=== PATIENT | female | born 1955 | race Caucasian/White ===

== ENCOUNTER → 2020-04-15 09:00 | Outpatient (CLI) | payer MEDICARE, OTHER, SELFPAY ==
[2020-04-15 10:15] LABS: Anion Gap 8 (5-15); BUN 19 mg/dL (7-18); Calcium,Total 8.3 mg/dL (8.5-10.1); Chloride 107 mmol/L (98-107); EST Glomerular Filtration Rate 66 mL/min (>60); Est Glom Filt Rate - Afr Amer 80 mL/min (>60); Glucose 93 mg/dL (74-106); Potassium 3.6 mmol/L (3.5-5.1); Sodium Level 141 mmol/L (136-145)
== END ==
PROVIDERS: PCP Internal Medicine; Referring Provider Nurse Practitioner Family; Visit Provider Nurse Practitioner Family
DX: Z79.891 Long term (current) use of opiate analgesic (principal); Z79.1 Long term (current) use of non-steroidal anti-inflammatories (NSAID)
CPT/HCPCS: 36415; 80048

== ENCOUNTER 2020-11-30 15:23 | Emergency (ER) | payer MEDICARE, SELFPAY ==
[2020-11-30 15:25] VITALS: BP 125/53; PULSE 78; RESP 18; TEMP 37.7; O2SAT 97; BMI 25.8
--- NOTE | 2020-11-30 15:50 | EX.ED.VIS.UR ---
HPI HPI - URI History of Present Illness Chief Complaint: Cough Informant: patient Onset/Context/Timing Onset: Days (3) Context: Gradual Onset Quality: Occasionally productive cough Location: Chest Current Severity: Moderate Maximum Severity: Moderate Worsened by: - (Coughing) Relieved by: - ( nothing) Narrative Narrative: 3 days of cough, congestion, sore throat at the beginning which is better now, and some shortness of breath. No symptoms of angina. No swelling in her legs. No fevers, chills, loss of taste or smell, or myalgias; although she comes into the ER with a temperature of 100. She denies any contact with anyone with Covid that she knows of. She has not been vaccinated. ROS ROS ED Constitutional Constitutional ED: Reports headache(s) and malaise; Denies body ache(s), chills or fever(s) Eyes Eyes: Denies change in vision or diplopia ENT ENT ED: Reports rhinorrhea and sore throat; Denies sinus pain Cardiovascular Cardiovascular: Denies chest pain or palpitations Respiratory/Chest Respiratory/Chest: Reports cough and dyspnea; Denies dyspnea on exertion Gastrointestinal Gastrointestinal: Reports diarrhea; Denies abdominal pain, nausea or vomiting Genitourinary Genitourinary ED: Denies dysuria or hematuria Musculoskeletal Musculoskeletal: Reports neck pain; Denies back pain Integumentary Denies abscess or rash Neurologic Neurologic: Reports headache(s); Denies paresthesias or weakness Psychiatric Psychiatric: Denies anxiety or suicidal thoughts [facility] Medical History (Updated 11/30/20 @ 17:[address] Musa Marsh MD) Chronic neck pain Home Medications albuterol sulfate [Ventolin HFA] 1 - 2 puff INHALATION Q4H PRN PRN #1 inhaler 11/30/20 [Rx Last Taken Unknown] Allergy/AdvReac Type Severity Reaction Status Date / Time diphenhydramine AdvReac Other Verified 11/30/20 15:25 [From Benadryl] prednisone AdvReac Other Verified 11/30/20 15:25 Social History Smoking Status: Former smoker EXAM Physical Exam Const Vital Signs: 11/30/20 15:25 11/30/20 15:51 Temperature 100 F H 100 F H Temperature Source Temporal Temporal Pulse Rate 78 78 Respiratory Rate 18 18 Blood Pressure 125/53 H 125/53 H Blood Pressure Mean 77 77 Pulse Ox 97 97 Oxygen Delivery Method Room Air Room Air Positive well nourished and well developed Constitutional Narrative: Well-appearing, no distress General Appearance ED: well developed and NAD HEENT Reports moist mucous membranes normocephalic and atraumatic Eyes PERRL and EOMs intact bilaterally Neck full ROM, no lymphadenopathy and supple Resp normal respiratory effort Resp Narrative: Few rhonchi left medial base otherwise clear throughout no wheezes no distress speaking in full sentences Cardio regular rate, regular rhythm and no murmurs Rate: Negative for tachycardic GI non-tender and non-distended Auscultation: normoactive bowel sounds Palpation: soft Back/Spine no CVA tenderness General Back: other FROM Extremity normal to inspection and no calf tenderness General Extremety ED: Negative for edema, pulses abnormal or tenderness General Extremity: Negative for edema or pulses abnormal Neuro oriented x3, CN's II-XII intact bilaterally and no sensory deficits noted Sensorium / Orientation: awake and alert Motor Exam: strength 5/5 throughout Skin no rashes or lesions noted and no wounds MDM MDM MDM Narrative Medical decision making narrative: Chest x-ray normal and Covid is positive. Patient reassured that her pulse ox is good she needs to isolate at home and continue watching her pulse oximetry, I will offer her an albuterol MDI. Lab Data Attestation: I reviewed the patient's lab results. Radiography Diagnostic Testing: Radiology Impression Chest X-Ray 11/30/20 15:55 IMPRESSION: No acute radiographic abnormalities. Electronically Signed: Luis Enrique Haney MD at 16:12 EDT Tel , Service support , Discharge Plan Triage Chief Complaint: Cough ED Provider: Musa Marsh Dx/Rx/DC Orders Clinical Impression: COVID-19 Instructions: Coronavirus Disease 2019 (COVID-19): Caring for Yourself or Others Prescriptions: New albuterol sulfate [Ventolin HFA] 1 INHALER inhaler 1 - 2 puff inhalation Q4H PRN PRN (Reason: Wheezing) Qty: 1 RF: 0 Primary Care Provider: Sruthi Ross Referrals: Sruthi Ross, [Primary Care Provider] - As Needed Activity Restrictions/Additional Instructions: Try to get a home portable pulse oximeter and closely watch her oxygen levels periodically. If you stay below 90% for more than a minute or so, and/or you are feeling like your breathing is getting worse, return to the emergency department for further evaluation. Disposition Disposition: Home, Self Care
[2020-11-30 15:51] VITALS: BP 125/53; PULSE 78; RESP 18; TEMP 37.7; O2SAT 97
--- NOTE | 2020-11-30 15:55 | RAD_ITS ---
INDICATION: cough sob EXAMINATION/TECHNIQUE: X-RAY - XR Chest 1 View COMPARISON: None. FINDINGS: The lungs are clear. The cardiomediastinal silhouette is unremarkable. No pleural effusion or pneumothorax. Degenerative changes of the thoracic spine and shoulders. RAD/Chest 1 View (Portable) IMPRESSION: No acute radiographic abnormalities. Electronically Signed: Luis Enrique Haney MD at 16:12 EDT Tel , Service support ,
[2020-11-30] MEDS: Acetaminophen 500 MG Tablet 1000 MG PO (17:27)
[2020-11-30 17:28] VITALS: BP 125/53; PULSE 78; RESP 18; TEMP 37.7; O2SAT 97
== END 2020-11-30 17:28 | disposition home or self-care (01) ==
PROVIDERS: Emergency Provider Emergency Medicine; PCP Internal Medicine
DX: U07.1 COVID-19 (principal); R19.7 Diarrhea, unspecified; Z79.899 Other long term (current) drug therapy; Z87.891 Personal history of nicotine dependence
CPT/HCPCS: 71045; 87426; 99283

== ENCOUNTER 2020-12-03 14:23 | Outpatient (CLI) | payer MEDICARE, SELFPAY ==
[2020-12-03] MEDS: 0.9% Saline Lock 10 ML Syringe IV (14:34)
[2020-12-03 14:37] VITALS: BP 110/64; PULSE 67; RESP 14; TEMP 36.9; O2SAT 100; BMI 26.6
[2020-12-03 15:35] VITALS: BP 111/44; PULSE 59; RESP 16; TEMP 36.8; O2SAT 100
[2020-12-03 16:35] VITALS: BP 113/49; PULSE 59; RESP 16; TEMP 36.7
== END 2020-12-03 16:35 | disposition home or self-care (01) ==
LOC: ICUOUT 14:23 → MS2 14:24
PROVIDERS: PCP Internal Medicine; Referring Provider Nurse Practitioner Family; Visit Provider Nurse Practitioner Family
DX: Z23 Encounter for immunization (principal); U07.1 COVID-19
CPT/HCPCS: J7050; M0243; A4216; Q0244

== ENCOUNTER 2021-06-06 09:38 | Outpatient (CLI) | payer OTHER, SELFPAY ==
[2021-06-06 10:11] LABS: Anion Gap 4 (5-15); BUN 16 mg/dL (7-18); BUN/Creat Ratio 17.3 RATIO (10-20); Calcium,Total 8.5 mg/dL (8.5-10.1); Chloride 110 mmol/L (98-107); Creatinine, Serum 0.92 mg/dL (0.55-1.02); EST Glomerular Filtration Rate 64 mL/min (>60); Est Glom Filt Rate - Afr Amer 78 mL/min (>60); Glucose 144 mg/dL (74-106); Potassium 3.8 mmol/L (3.5-5.1); Sodium Level 139 mmol/L (136-145)
== END 2021-06-06 23:59 | disposition home or self-care (01) ==
PROVIDERS: PCP Internal Medicine; Referring Provider Anesthesiology Pain Medicine; Visit Provider Anesthesiology Pain Medicine
DX: M50.320 Other cervical disc degeneration, mid-cervical region, unspecified level (principal); Z79.1 Long term (current) use of non-steroidal anti-inflammatories (NSAID)
CPT/HCPCS: 36415; 80048

== ENCOUNTER 2022-01-27 08:31 | Emergency (ER) | payer MEDICARE, SELFPAY ==
[2022-01-27 08:32] VITALS: BP 161/73; PULSE 69; RESP 14; TEMP 36.8; O2SAT 100; BMI 27.5
--- NOTE | 2022-01-27 08:41 | CT_ITS ---
STUDY: CT ABDOMEN AND PELVIS WITHOUT CONTRAST REASON FOR EXAM: Female, 66 years old. flank pain-LEFT RADIATION DOSAGE (If Supplied By Facility): CTDIvol = ( 7.90 ) mGy, DLP = ( 378.84 ) mGycm TECHNIQUE: Transaxial images were obtained from the dome of the diaphragm to the symphysis pubis without oral contrast, and without intravenous contrast. Sagittal and coronal images were reconstructed. Individualized dose optimization techniques were used for this CT. COMPARISON: 08/14/2012 FINDINGS: No change in left lower lobe scarring. The visualized portions of the heart are within normal limits. Normal liver. Normal gallbladder and extrahepatic biliary system. Normal spleen. Normal pancreas. Normal bilateral adrenal glands. Normal right kidney. Normal left kidney. Normal visualized stomach. Normal small intestine. There are multiple colonic diverticula consistent with diverticulosis. There are surgical clips in the region of the appendix consistent with a prior appendectomy. Normal abdominal aorta. Normal inferior vena cava. Normal retroperitoneum. Normal urinary bladder. Normal abdominal wall. Normal osseous structures. CT/Abdomen/Pelvis without Cont IMPRESSION: No renal or ureteral stone. Sigmoid diverticulosis without definite diverticulitis. Electronically Signed: Bran Frost MD at 10:05 EST ,
--- NOTE | 2022-01-27 08:42 | ED.VIS.FEGU ---
HPI HPI - Female History of Present Illness Chief Complaint: Flank Pain Narrative Narrative: Patient presents with left-sided flank pain and abdominal pain that started last night. She has no urinary symptoms or hematuria. Pain is waxing and waning. She has no nausea or vomiting she has no right-sided abdominal pain. She has no chest pain or shortness of breath. This pain does not seem to be mechanical, when she moves or walks it does not seem to be any worse. PFSH PFSH Medical History Chronic neck pain Home Medications albuterol sulfate 90 mcg/actuation aerosol inhaler (Ventolin HFA) 1 - 2 puff inhalation Q4H PRN PRN Wheezing ##1 11/30/20 [Rx Last Taken 12/02/20] meloxicam 7.5 mg tablet 7.5 mg PO BID 12/02/20 [History Last Taken 12/02/20] oxycodone-acetaminophen 7.5 mg-325 mg tablet 1 tab PO BID PRN Pain 12/02/20 [History Last Taken 12/02/20] pregabalin 100 mg capsule (Lyrica) 100 mg PO BID 12/02/20 [History Last Taken 12/02/20] amoxicillin 500 mg-potassium clavulanate 125 mg tablet (Augmentin) 1 tab PO Q8H #21 tabs 01/27/22 [Rx Last Taken Unknown] hydrocodone-acetaminophen 5-325mg 5mg-325mg 1 tab PO Q6H PRN pain 3 days #10 tabs 01/27/22 [Rx Last Taken Unknown] Allergy/AdvReac Type Severity Reaction Status Date / Time diphenhydramine AdvReac Rash Verified 01/27/22 08:32 [From Benadryl] prednisone AdvReac Rash Verified 01/27/22 08:32 Social History Smoking Status: Former smoker ROS ROS ED ROS Narrative Past medical history: Reviewed, neck pain otherwise no other medical problems. Medications: Reviewed Social history: Noncontributory, non-smoker but exposed to secondhand smoke. Review of systems: All systems negative except as indicated General: No fever Eyes: No visual changes ENT: No upper airway congestion, normal voice Neck: No neck pain Cardiovascular: No chest pain Respiratory: No shortness of breath or cough Gastrointestinal: Left-sided abdominal pain. Left-sided flank pain. No nausea vomiting or diarrhea Genitourinary: No dysuria, no hematuria Musculoskeletal: Denies myalgias no difficulty with ambulation Skin: No rash Neurological: No memory loss, confusion or any focal weakness Psych: No recent behavioral changes Hematologic: No easy bleeding or easy bruising EXAM Physical Exam Narrative Exam Narrative: Physical exam General: Patient appears relatively comfortable in the bed. Head: Normocephalic, Atraumatic Eyes: Conjunctiva not pale ENT: Moist mucous membranes Neck: Supple, Nontender, No lymphadenopathy Cardiovascular: Regular rate, Regular rhythm Respiratory: No distress, CTA bilaterally Abdomen: Soft, there is left-sided abdominal pain, it is right next to the umbilicus. It is not left upper or left lower and she has no pelvic pain. She has left CVA tenderness. No guarding rebound, no right-sided abdominal pain. Relatively benign abdominal exam Back: Nontender, Normal Inspection. Extremities: Nontender, No edema Skin: Normal color, No rash Neurological: Alert, Normal Strength, Normal Sensation Psychological: Normal affect Const Vital Signs: 01/27/22 08:32 01/27/22 11:04 Temperature 98.2 F Temperature Source Temporal Pulse Rate 69 60 Respiratory Rate 14 18 Blood Pressure 161/73 H 152/72 H Blood Pressure Mean 102 98 Pulse Ox 100 100 Oxygen Delivery Method Room Air Room Air MDM MDM MDM Narrative Medical decision making narrative: Patient has an unremarkable work-up. There may be a slight UTI, she continues to have left lower quadrant abdominal pain and she has diverticulosis on CT, she may have early diverticulitis. I will choose Augmentin as a treatment since he would cover the UTI. Otherwise I will discharge in stable condition Lab Data Labs: Laboratory Results - last 24 hr 01/27/22 01/27/22 01/27/22 08:45 08:49 08:49 WBC 6.6 RBC 4.57 Hgb 13.4 Hct 40.4 MCV 88.4 MCH 29.3 MCHC 33.2 RDW Std Deviation 44.0 H RDW Coeff of [place] 13.6 Plt Count 295 MPV 9.9 Immature Gran % (Auto) 0.500 Neut % (Auto) 60.9 Lymph % (Auto) 27.5 [place] % (Auto) 7.4 Eos % (Auto) 2.9 Baso % (Auto) 0.8 Absolute Neuts (auto) 4.0 Absolute Lymphs (auto) 1.81 Nucleated RBC % 0 Sodium 140 Potassium 4.1 Chloride 108 H Carbon Dioxide 28.0 Anion Gap 4 L BUN 11 Creatinine 0.81 Estim Creat Clear Calc 59.81 Est GFR (MDRD) Af Amer 90 Est GFR (MDRD) Non-Af 74 BUN/Creatinine Ratio 13.5 Glucose 100 Calcium 9.1 Total Bilirubin 0.70 AST 12 L ALT 19 Alkaline Phosphatase 107 Total Protein 7.3 Albumin 3.7 Globulin 3.6 Albumin/Globulin Ratio 1.0 Lipase 165 Urine Color Yellow Urine Clarity Sl. Cloudy Urine pH 8.0 Ur Specific [place] 1.015 Urine Protein Negative Urine Glucose (UA) Normal Urine Ketones Negative Urine Occult Blood 10 H Urine Nitrite Negative Urine Bilirubin Negative Urine Urobilinogen Normal Ur Leukocyte Esterase 100 H Urine RBC 0-5 SEEN Urine WBC 10-25 SEEN Ur Squamous Epith Cells 0-5 SEEN Urine Bacteria 0 SEEN Urine Mucus 0 SEEN Radiography Diagnostic Testing: Clinical Impression(s) from Imaging Studies Abdomen/Pelvis CT 01/27/22 08:41 IMPRESSION: No renal or ureteral stone. Sigmoid diverticulosis without definite diverticulitis. Electronically Signed: Bran Frost MD at 10:05 EST , Discharge Plan Triage Chief Complaint: Flank Pain ED Provider: Sebastian Montano Dx/Rx/DC Orders Clinical Impression: Abdominal pain, Acute UTI Instructions: Abdominal Pain Prescriptions: New amoxicillin-pot clavulanate [Augmentin] 500-125 mg tablet 1 tab PO Q8H Qty: 21 0RF hydrocodone-acetaminophen 5-325 mg tablet 1 tab PO Q6H PRN (Reason: pain) 3 Days Qty: 10 0RF No Action oxycodone-acetaminophen 7.5-325 mg tablet 1 tab PO BID PRN (Reason: Pain) pregabalin [Lyrica] 100 mg capsule 100 mg PO BID meloxicam 7.5 mg tablet 7.5 mg PO BID albuterol sulfate [Ventolin HFA] 1 INHALER inhaler 1 - 2 puff inhalation Q4H PRN PRN (Reason: Wheezing) Qty: 1 0RF Primary Care Provider: Care Physician,No Primary Referrals: Sruthi Ross DO [Med Staff - [employer]] - 3-5 Days Disposition Disposition: Home, Self Care
[2022-01-27 08:57] LABS: Bacteria 0 SEEN /hpf (None Seen); Mucous, Urine 0 SEEN /hpf (<or=2+)
[2022-01-27 09:02] LABS: Color, Urine Yellow (Yellow); Glucose, Dipstick Normal (Normal); Ketone-Dipstick Negative (Negative); Leukocyte Esterase-Dipstick 100 /ul (Negative); Nitrite-Dipstick Negative (Negative); Occult Blood-Urine 10 /ul (Negative); Protein-Dipstick Negative (Negative); Specific Gravity, Urine 1.015 (1.002-1.030); Urine Bilirubin Dipstick Negative (Negative); Urine Clarity Sl. Cloudy (Clear); Urine Urobilinogen Normal (Normal)
[2022-01-27 09:08] LABS: Red Blood Cells-Urine 0-5 SEEN /hpf (0-5); Squamous Epithelial Cells - UA 0-5 SEEN /hpf (5-10); White Blood Cells 10-25 SEEN /hpf (0-5)
[2022-01-27 09:14] LABS: Absolute Lymphocyte Count 1.81 X10^3/uL (0.83-4.51); Basophil# 0.05 X10^3/uL; Basophil% 0.8 % (0-1); Eosinophil# 0.19 X10^3/uL; Eosinophils% 2.9 % (0-5); Hematocrit 40.4 % (37-47); Hemoglobin 13.4 g/dL (12.0-15.0); Lymphocyte # 1.81 X10^3/ul (0.83-4.51); Lymphocyte % 27.5 % (19-41); Mean Corp Hgb Conc 33.2 g/dL (32-36); Mean Corpuscular Hgb 29.3 pg (27.0-32.0); Mean Corpuscular Volume 88.4 fL (81-99); Mean Platelet Vol. 9.9 fl (6.2-12.0); Monocyte# 0.49 X10^3/uL; Monocyte% 7.4 % (0-10); NRBC Flagged by Analyzer 0 % (0-5); Neutrophil # 4.02 X10^3/uL (2.7-7.7); Neutrophil % 60.9 % (47-70); Platelet Count 295 K/mm3 (150-450); RBC Distribution Width CV 13.6 % (11.6-14.6); Red Blood Count 4.57 M/mm3 (4.2-5.4); White Blood Count 6.6 K/mm3 (4.4-11.0)
[2022-01-27 09:28] LABS: AST(SGOT) 12 U/L (15-37); Alanine Aminotransfer ALT/SGPT 19 U/L (13-56); Albumin, Serum 3.7 g/dL (3.2-5.0); Alkaline Phosphatase 107 U/L (45-117); Anion Gap 4 (5-15); BUN 11 mg/dL (7-18); BUN/Creat Ratio 13.5 RATIO (10-20); Calcium,Total 9.1 mg/dL (8.5-10.1); Chloride 108 mmol/L (98-107); Creatinine, Serum 0.81 mg/dL (0.55-1.02); EST Glomerular Filtration Rate 74 mL/min (>60); Est Glom Filt Rate - Afr Amer 90 mL/min (>60); Estimated Creatinine Clearance 59.81 ml/min; Globulin 3.6 g/dL (2.2-4.2); Glucose 100 mg/dL (74-106); Lipase 165 U/L (73-393); Potassium 4.1 mmol/L (3.5-5.1); Protein, Total 7.3 g/dL (6.4-8.2); Sodium Level 140 mmol/L (136-145)
[2022-01-27 11:04] VITALS: BP 152/72; PULSE 60; RESP 18; O2SAT 100
[2022-01-27] MEDS: HYDROcodone Bitartrate/Apap 5/325 Tablet PO (11:21)
[2022-01-27] MEDS: Amox/Clavulanate 875 MG Tablet PO (11:23)
== END 2022-01-27 11:41 | disposition home or self-care (01) ==
PROVIDERS: Emergency Provider Emergency Medicine; Visit Provider Emergency Medicine
DX: R10.32 Left lower quadrant pain (principal); N39.0 Urinary tract infection, site not specified; Z79.1 Long term (current) use of non-steroidal anti-inflammatories (NSAID); Z79.899 Other long term (current) drug therapy; Z87.891 Personal history of nicotine dependence
CPT/HCPCS: 74176; 80053; 81001; 83690; 85025; 96360; 96361; 99284; J7040; A4216

== ENCOUNTER → 2022-07-27 | Outpatient (CLI) | payer OTHER, SELFPAY ==
[2022-07-27 13:42] LABS: Anion Gap 5 (5-15); BUN 15 mg/dL (7-18); BUN/Creat Ratio 17.5 RATIO (10-20); Calcium,Total 8.8 mg/dL (8.5-10.1); Chloride 108 mmol/L (98-107); Creatinine, Serum 0.86 mg/dL (0.55-1.02); EST Glomerular Filtration Rate 70 mL/min (>60); Est Glom Filt Rate - Afr Amer 84 mL/min (>60); Glucose 148 mg/dL (74-106); Potassium 3.6 mmol/L (3.5-5.1); Sodium Level 140 mmol/L (136-145)
== END | disposition home or self-care (01) ==
LOC: PAVLAB 13:04
PROVIDERS: Referring Provider Anesthesiology Pain Medicine; Visit Provider Anesthesiology Pain Medicine
DX: Z79.01 Long term (current) use of anticoagulants (principal)
CPT/HCPCS: 36415; 80048